=== PATIENT | male | born 1945 | race American Indian/Alaskan Native ===

== ENCOUNTER 2017-01-07 19:25 | Emergency (ER) | payer MEDICARE ==
[2017-01-07] MEDS ORDERED: TYLENOL ONE (20:10)
[2017-01-07] MEDS ORDERED: TYLENOL PO ONE (20:12)
[2017-01-07] MEDS ORDERED: NACL 0.9% 500 ML IR ONE (20:51)
[2017-01-07] MEDS ORDERED: NACL 0.9% IR ONE (21:11)
[2017-01-07] MEDS ORDERED: BOOSTRIX IM ONE (21:41)
[2017-01-07] MEDS ORDERED: AUGMENTIN 875 MG PO ONE (21:41)
--- NOTE | 2017-01-07 21:47 | Emergency Department Report ---
<DICKSON BERNAL - Last Filed: 01/07/17 21:42> - General Chief Complaint: Wound/Laceration Stated Complaint: DOG BITE Time Seen by Provider: 01/07/17 21:09 Source: patient Mode of arrival: Ambulatory Limitations: No Limitations - History of Present Illness Initial Comments: Dog bit right index finger 4 hrs ago, complains of pain and inability to extend right index finger, wound x 1 index fing palmaer tip 1 cm and dorsal right 2nd joint of right index finger pt unable to extend right index finger Onset/Timin -: hour(s) Location: other (right index finger) Extremity Location: Right: Hand (right index finger) Place: outdoors Patient Tetanus UTD: No Context: other (dog bite) Associated Symptoms: pain, other (decreased extension) - Related Data Home Medications Medication Instructions Recorded Confirmed Last Taken Ibuprofen [Motrin] 800 mg PO TID PRN 03/10/13 03/10/13 03/09/13 22:00 Lisinopril [Zestril] 10 mg PO QDAY 03/10/13 03/10/13 03/09/13 11:44 Previous Rx's Medication Instructions Recorded Last Taken Type Amlodipine Besylate [Norvasc] 2.5 mg PO DAILY #90 tab 03/10/13 Unknown Rx EPINEPHrine (NF) [Epipen] 0.3 mg IM ONCE #1 syringekit 03/10/13 Unknown Rx Prednisone 40 mg PO QDAY #10 tablet 03/10/13 Unknown Rx Amoxicillin/K Clav Tab [Augmentin 1 tab PO Q12HR #28 tab 01/07/17 Unknown Rx 875 mg] Neomy/Baci/Polymyx Oint [Triple 15 gm TP BID #1 tube 01/07/17 Unknown Rx Antibiotic] traMADol [Ultram] 50 mg PO Q6HR PRN #20 tablet 01/07/17 Unknown Rx Allergies Allergy/AdvReac Type Severity Reaction Status Date / Time codeine Allergy Vomiting Verified 01/07/17 20:05 lisinopril Allergy Swelling Verified 03/10/13 10:28 ED Review of Systems ROS: Stated complaint: DOG BITE Other details as noted in HPI Constitutional: denies: chills, fever Eyes: denies: eye pain, eye discharge, vision change ENT: denies: ear pain, throat pain Respiratory: denies: cough, shortness of breath, wheezing Cardiovascular: denies: chest pain, palpitations Endocrine: no symptoms reported Gastrointestinal: denies: abdominal pain, nausea, diarrhea Genitourinary: denies: urgency, dysuria Musculoskeletal: myalgia (right index finger dog bite) Skin: denies: rash, lesions Neurological: weakness (right index finger extension weakness ). denies: numbness, paresthesias, confusion, abnormal gait, vertigo Psychiatric: denies: anxiety, depression Hematological/Lymphatic: denies: easy bleeding, easy bruising ED Past Medical Hx - Past Medical History Previous Medical History?: Yes Hx Hypertension: Yes - Surgical History Past Surgical History?: Yes Hx Appendectomy: Yes - Social History Smoking Status: Never Smoker Substance Use Type: Alcohol - Medications Home Medications: Home Medications Medication Instructions Recorded Confirmed Last Taken Type Amlodipine Besylate [Norvasc] 2.5 mg PO DAILY #90 tab 03/10/13 Unknown Rx EPINEPHrine (NF) [Epipen] 0.3 mg IM ONCE #1 syringekit 03/10/13 Unknown Rx Ibuprofen [Motrin] 800 mg PO TID PRN 03/10/13 03/10/13 03/09/13 22:00 History Lisinopril [Zestril] 10 mg PO QDAY 03/10/13 03/10/13 03/09/13 11:44 History Prednisone 40 mg PO QDAY #10 tablet 03/10/13 Unknown Rx Amoxicillin/K Clav Tab [Augmentin 1 tab PO Q12HR #28 tab 01/07/17 Unknown Rx 875 mg] Neomy/Baci/Polymyx Oint [Triple 15 gm TP BID #1 tube 01/07/17 Unknown Rx Antibiotic] traMADol [Ultram] 50 mg PO Q6HR PRN #20 tablet 01/07/17 Unknown Rx ED Physical Exam - General Limitations: No Limitations General appearance: alert, in no apparent distress - Head Head exam: Present: atraumatic, normocephalic - Eye Eye exam: Present: normal appearance - ENT ENT exam: Present: mucous membranes moist - Neck Neck exam: Present: normal inspection - Respiratory Respiratory exam: Present: normal lung sounds bilaterally. Absent: respiratory distress - Cardiovascular Cardiovascular Exam: Present: regular rate, normal rhythm. Absent: systolic murmur, diastolic murmur, rubs, gallop - GI/Abdominal GI/Abdominal exam: Present: soft, normal bowel sounds - Rectal Rectal exam: Present: deferred - Extremities Exam Extremities exam: Present: tenderness, normal capillary refill, joint swelling. Absent: pedal edema, calf tenderness - Expanded Upper Extremity Exam Right Hand Wrist exam: Present: tenderness, swelling, laceration, other (dog bite right index finger 1st joint ). Absent: ecchymosis, deformity, crepidus, dislocation, erythema, amputation Hand L/R Front: 1 - Positive: laceration Hand L/R Back: 1 - puncture wound dog bite Neuro motor exam: Present: wrist extension intact, thumb opposition intact, thumb IP flexion intact, thumb adduction intact. Absent: fingers 2-5 abduction intact (right index extension weakness ) Neurosensory exam: Present: 2-point discrimination, radial nerve intact, ulnar nerve intact, median nerve intact Vascular: Present: normal capillary refill, radial pulse, brachial pulse, ulnar pulse. Absent: vascular compromise, pulse deficit radial art, pulse deficit ulnar art, pulse deficit brachial art - Back Exam Back exam: Present: normal inspection - Neurological Exam Neurological exam: Present: alert, oriented X3 - Psychiatric Psychiatric exam: Present: normal affect, normal mood - Skin Skin exam: Present: warm, other (dog bit right index finger ) ED Course Vital Signs 01/07/17 20:12 Temperature 98.7 F Pulse Rate 83 Respiratory 20 Rate Blood Pressure 146/85 [Right] O2 Sat by Pulse 99 Oximetry ED Medical Decision Making - Radiology Data Radiology results: image reviewed no fracture - Medical Decision Making pt is a 71 y/o aaf with hx of htn, who presents for dog bite to right index finger resulted in 1 cm laceration right index finger tip , puncture wound to right index finger dorsal side 1st joint , MP joint, pt with loss of extension to opposition, rad pulses + 2 bilat, 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, 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, wound irrigated washed with copius soap and water via patient, , irrigated with ns betadine solution x 500cc via provider bleed in control xray no fracture hand surgery consult [facility] operations research engineer Dr Jang contacted through [facility], recommendation irrigate thoroughly, loose suture, TDap, Augmentin, Follow up with Handsurgery within 2 weeks, if symptoms worsen return to emergency for hand surgery consult, discussed same with patient, pt refuses follow up or transfer to [facility], Explained indepth to pt and importance of immediate return to emergency if symptoms worsen and importance of follow up with Hand Surgery within next 2 weeks pt and verbalized understanding of same. wound with steristip x 1 to puncture wound, x 2 to laceration loosely steril 4x4 dressing nad finger splint , pt will follow up with [facility] on Tuesday or report to [facility] if symptoms worsen over next 2 days prior to follow with hand surgery. Critical care attestation.: If time is entered above; I have spent that time in minutes in the direct care of this critically ill patient, excluding procedure time. ED Disposition Clinical Impression: Finger, open wounds with tendon injury Dog bite of index finger Qualifiers: Encounter type: initial encounter Qualified Code(s): S61.258A - Open bite of other finger without damage to nail, initial encounter Disposition: TO HOME OR SELFCARE Is pt being admited?: No Does the pt Need Aspirin: No Condition: Good Instructions: Animal Bite (ED), Finger Laceration (ED) Additional Instructions: ensure to follow up with hand surgery with in 2 weeks , [facility] good choice [phone] or [facility] if Symptoms worsen prior to seeing Hand Surgery Prescriptions: Amoxicillin/K Clav Tab [Augmentin 875 mg] 1 tab PO Q12HR #28 tab Neomy/Baci/Polymyx Oint [Triple Antibiotic] 15 gm TP BID #1 tube traMADol [Ultram] 50 mg PO Q6HR PRN #20 tablet PRN Reason: Pain Referrals: PRIMARY CARE, [Referring] - 3-5 Days Time of Disposition: 22:48 <FAY HERMOSILLO - Last Filed: 01/08/17 00:26> ED Medical Decision Making - Radiology Data Radiology results: report reviewed (right hand x-ray: No significant abnormality ) - Medical Decision Making Lety states that animal control came to scene and verified the dogs immunizations are up-to-date including rabies.
--- NOTE | 2017-01-07 21:48 | XRay Report ---
FINAL REPORT PROCEDURE: Right hand. TECHNIQUE: Three views. HISTORY: Dog bite, laceration to index finger. COMPARISON: No prior studies are available for comparison. FINDINGS: The bones appear intact without fracture or dislocation. The joint spaces appear satisfactory. The soft tissues are unremarkable. There are no radiopaque foreign bodies. IMPRESSION: Normal study.
[2017-01-07] MEDS ORDERED: ULTRAM PO ONE (22:21)
[2017-01-07] MEDS ORDERED: ULTRAM ONE (22:23)
--- NOTE | 2017-01-07 22:27 | XRay Report ---
FINAL REPORT PROCEDURE: Right hand. TECHNIQUE: Three views. HISTORY: Dog bite, laceration, fracture. COMPARISON: Right hand done earlier today. FINDINGS: The bones appear intact without fracture or dislocation. The joint spaces appear satisfactory. The soft tissues are unremarkable. IMPRESSION: No significant abnormality.
[2017-01-08 00:47] VITALS: BP 150/95
== END 2017-01-07 23:04 | disposition home or self-care (01) ==
LOC: ED 19:25
DX: S61.230A Puncture wound without foreign body of right index finger without damage to nail, initial encounter (principal); I10 Essential (primary) hypertension; W54.0XXA Bitten by dog, initial encounter; Y93.9 Activity, unspecified; Y92.9 Unspecified place or not applicable; Y99.9 Unspecified external cause status
CPT/HCPCS: 90471; 90715

== ENCOUNTER 2017-10-12 15:18 | Outpatient (CLI) | payer MEDICARE ==
--- NOTE | 2017-10-12 18:04 | XRay Report ---
FINAL REPORT EXAM: XR HIP 2-3V RT HISTORY: PAIN IN RIGHT HIP JOINT TECHNIQUE: AP pelvis radiograph. Frog-leg radiograph of the right hip. PRIORS: None. FINDINGS: No fracture. No dislocation. Normal mineralization. No soft tissue abnormality. There is near complete loss of right hip joint space with subchondral sclerosis, subchondral cysts and peripheral osteophyte formations. There is moderate left hip joint space loss, subchondral sclerosis and peripheral osteophyte formations. There is a focal outward protuberance along the lateral aspect of the right femoral head/neck junction. 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
== END 2017-10-12 15:19 | disposition home or self-care (01) ==
LOC: XRAY 15:18
PROVIDERS: ATTEND Internal Medicine
DX: M16.11 Unilateral primary osteoarthritis, right hip (principal); M25.851 Other specified joint disorders, right hip